=== PATIENT | male | born 1960 | race American Indian/Alaskan Native ===

== ENCOUNTER 2021-05-22 19:24 | Emergency (ER) | payer SELFPAY | END 2021-05-23 04:58 | LOC: ED 19:24 | DX: R39.89 Other symptoms and signs involving the genitourinary system (principal); Z53.21 Procedure and treatment not carried out due to patient leaving prior to being seen by health care provider ==

== ENCOUNTER 2022-02-03 07:04 | Outpatient (CLI) | payer OTHER ==
[2022-02-03 07:53] LABS: Blood Urea Nitrogen 18 mg/dL (9-20)
--- NOTE | 2022-02-03 09:37 | Cat Scan Report ---
CT ABDOMEN AND PELVIS WITH CONTRAST--CT urogram HISTORY: HEMATURIA R31.0. COMPARISON: None. TECHNIQUE: CT images of the abdomen and pelvis were obtained following administration of intravenous contrast. All CT scans at this location are performed using CT dose reduction for ALARA by means of automated exposure control. CONTRAST: 100 ml of intravenous contrast administered. FINDINGS: Lungs/bones: Lung bases are clear. There are degenerative changes in the spine and the pelvis with n o acute osseous abnormality. Abdomen/pelvis: On the noncontrast portion of the exam, there is no radiopaque urinary stone disease . After the administration of contrast, there is no renal mass or cyst. The delayed phase series show s no hydronephrosis or collecting system filling defect. The prostate is grossly enlarged and heterogeneous, indenting the bladder base. No inherent bladder a bnormality identified such as a mass or obvious stone disease. The liver, gallbladder, spleen, pancreas, adrenals, and proximal GI tract appear unremarkable. There is a moderately-sized ventral wall hernia in the midline containing small bowel, but there is n o bowel obstruction. No pelvic free fluid. There is colonic diverticulosis with no acute inflammation. The appendix is nor mal. IMPRESSION: 1. Abnormal appearance of the prostate can be seen in the setting of BPH among other etiologies. Red elate with PSA level. 2. Unremarkable appearance of the kidneys and urinary bladder. 3. Additional incidental findings as above. Signer Name: Leonid Bustillo MD Signed: 02/03/2022 9:32 AM Workstation Name: [id number]
== END 2022-02-03 07:05 | disposition home or self-care (01) ==
LOC: CT 07:04
PROVIDERS: ATTEND Urology
DX: K57.30 Diverticulosis of large intestine without perforation or abscess without bleeding (principal); R31.0 Gross hematuria
CPT/HCPCS: 36415; 74178; 82565; 84520; Q9967